=== PATIENT | female | born 1975 | race Caucasian/White ===

== ENCOUNTER 2019-09-07 05:25 | Inpatient (IN) | payer BC ==
[2019-09-04 13:17] LABS: BASOPHILS # (AUTO) 0.1 K/uL (0.0-0.2); BASOPHILS % (AUTO) 1.3 % (0.0-2.0); EOSINOPHILS # (AUTO) 0.4 K/uL (0.0-0.4); EOSINOPHILS % (AUTO) 4.9 % (0.0-4.0); HEMATOCRIT 41.2 % (36-48); HEMOGLOBIN 13.5 g/dL (12.0-16.0); LYMPHOCYTES # (AUTO) 1.6 K/uL (1.0-5.5); LYMPHOCYTES % (AUTO) 20.2 % (20.5-51.5); MEAN CORPUSCULAR HEMOGLOBIN 29 pg (27-31); MEAN CORPUSCULAR HGB CONC 33 % (32-36); MEAN CORPUSCULAR VOLUME 89 fL (79.0-98.0); MONOCYTES # (AUTO) 0.6 K/uL (0.0-1.0); MONOCYTES % (AUTO) 7.8 % (1.7-9.3); NEUTROPHILS # (AUTO) 5.3 K/uL (1.8-7.7); NEUTROPHILS % (AUTO) 65.8 % (40.0-70.0); PLATELET COUNT (AUTO) 280 K/uL (130-430); RED BLOOD CELL COUNT(AUTO) 4.63 MIL/uL (4.2-6.2); RED CELL DISTRIBUTION WIDTH 13.6 % (9.0-15.0); WHITE BLOOD COUNT (AUTO) 8.1 K/uL (4.8-10.8)
[2019-09-04 13:25] LABS: CALCIUM 8.9 mg/dL (8.4-11.0); CREATININE 0.7 mg/dL (0.55-1.30); POTASSIUM 3.9 mmol/L (3.5-5.1)
[2019-09-04 13:30] LABS: INR 0.9 (0.8-1.2); PROTHROMBIN TIME 9.3 SECS (9.5-12.5)
[2019-09-04 13:34] LABS: BILIRUBIN,URINE NEGATIVE (NEGATIVE); BLOOD, URINE NEGATIVE (NEGATIVE); CLARITY/URINE CLEAR (CLEAR); COLOR,URINE YELLOW (YELLOW); GLUCOSE,URINE NEGATIVE (NEGATIVE); KETONES,URINE NEGATIVE (NEGATIVE); LEUKOCYTE ESTERASE ,URINE NEGATIVE (NEGATIVE); NITRITE, URINE NEGATIVE (NEGATIVE); PH,URINE 7.5 (5.0-8.0); PROTEIN URINE NEGATIVE (NEGATIVE); UROBILINOGEN,URINE 0.2 (0.2-1.0)
[~2019-09-07] VITALS: Ht 162.6 cm; Wt 126.6 kg
[~2019-09-07 05:25] MED LIST: ALBMDI INH; ESCI10TA PO; LEVO75TA7 PO
[2019-09-07] MEDS ORDERED: CELECOXIB 200 MG CAPSULE ONE (06:19)
[2019-09-07] MEDS ORDERED: ACETAMINOPHEN 500 MG TABLET ONE (06:20)
[2019-09-07] MEDS ORDERED: GABAPENTIN 300 MG CAPSULE ONE (06:20)
[2019-09-07] MEDS ORDERED: oxyCODONE HCL 10 MG TAB.ER.12H PO ONE (06:21)
[2019-09-07] MEDS ORDERED: TRANEXAMIC ACID 650 MG TABLET ONE (06:21)
[2019-09-07] MEDS ORDERED: GABAPENTIN 300 MG CAPSULE PO ONE (06:45)
[2019-09-07] MEDS ORDERED: ACETAMINOPHEN 500 MG TABLET PO ONE (06:45)
[2019-09-07] MEDS ORDERED: oxyCODONE HCL 5 MG TABLET PO ONE (06:45)
[2019-09-07] MEDS ORDERED: CELECOXIB 200 MG CAPSULE PO ONE (06:45)
[2019-09-07] MEDS ORDERED: CEFAZOLIN 2 GM IVPB PREMIX 50 ML IV ONE (07:00)
[2019-09-07] MEDS ORDERED: TRANEXAMIC ACID 650 MG TABLET PO ONE (07:00)
[2019-09-07] MEDS ORDERED: LR 1,000 ML IV.SOLN IV ONE (07:25)
[2019-09-07] MEDS ORDERED: ROPIVACAINE HCL/PF 5 MG/ML 0.5% 30 ML VIAL EP ONE (07:25)
[2019-09-07] MEDS ORDERED: PROPOFOL 200MG/ 20ML VIAL (DIPRIVAN) IV ONE (07:25)
[2019-09-07] MEDS ORDERED: POLYMYXIN 500,000/BACIT.10,000 UNITS in NS IRR 1 L IR ONE (07:25)
[2019-09-07] MEDS ORDERED: TRANEXAMIC ACID 1,000 MG/10 ML VIAL IV ONE (07:25)
[2019-09-07] MEDS ORDERED: MIDAZOLAM HCL 5 MG/5 ML VIAL IVP ONE (07:25)
[2019-09-07] MEDS ORDERED: ROPIVACAINE HCL/PF 0.2% EPIDURAL 200 ML PLAST..BAG EP ONE (07:25)
[2019-09-07] MEDS ORDERED: VANCOMYCIN HCL 1000 MG/VIAL IV ONE (07:25)
[2019-09-07] MEDS ORDERED: KETOROLAC TROMETHAMINE 30 MG VIAL IVP ONE (07:25)
[2019-09-07] MEDS ORDERED: BUPIVACAINE /DEX PF 0.75% SPINAL 2 ML AMP INJ ONE (07:25)
[2019-09-07] MEDS ORDERED: BACITRACIN 50,000 UNITS VIAL ONE (07:26)
[2019-09-07] MEDS ORDERED: fentaNYL CITRATE/PF 100 MCG/2 ML AMP IVP PRN ×2 (08:00)
[2019-09-07] MEDS ORDERED: MORPHINE SULFATE 10MG/10ML PF AMP SP SCH (08:00)
[2019-09-07] MEDS ORDERED: NALBUPHINE HCL 10 MG/ML AMP IVP PRN ×3 (08:00→08:15)
[2019-09-07] MEDS ORDERED: NALOXONE HCL 0.4 MG/ML AMP (NARCAN) IVP PRN ×2 (08:00)
[2019-09-07] MEDS ORDERED: KETOROLAC TROMETHAMINE 60 MG/2 ML VIAL IM PRN (08:00)
[2019-09-07] MEDS ORDERED: ONDANSETRON HCL 4 MG/2 ML VIAL IVP PRN ×3 (08:00→08:15)
[2019-09-07] MEDS ORDERED: DIPHENHYDRAMINE INJ 50 MG/ML VIAL IVP PRN ×2 (08:00→08:15)
[2019-09-07] MEDS ORDERED: ROPIVACAINE HCL/PF 0.2% 100 ML INJ SCH (08:06)
[2019-09-07] MEDS ORDERED: OXYCODONE/ACETAMINOPHEN *10*mg/325 mg TABLET PO PRN (08:15)
[2019-09-07] MEDS ORDERED: D5/0.45 NS 1,000 ML IV ONE (09:35)
[2019-09-07] MEDS ORDERED: MORPHINE SULFATE 10 MG/ML VIAL IM PRN (09:45)
[2019-09-07] MEDS ORDERED: ACETAMINOPHEN 325 MG TABLET PO PRN (09:45)
[2019-09-07] MEDS ORDERED: BISACODYL 10 MG/SUPPOSITORY RC PRN (09:45)
[2019-09-07 11:00] VITALS: BP_SYST 125
[2019-09-07] MEDS: NACL 0.9% 1,000 ML IV SCH ×2 (11:00→13:02)
[2019-09-07] MEDS: DIPHENHYDRAMINE INJ 50 MG/ML VIAL IVP PRN ×4 (11:19→23:52)
[2019-09-07 11:36] VITALS: BP_SYST 125
[2019-09-07 11:44] VITALS: BP_SYST 125
[2019-09-07] MEDS: OXYCODONE/ACETAMINOPHEN *10*mg/325 mg TABLET PO PRN ×3 (15:04→23:53)
[2019-09-07] MEDS: CEFAZOLIN 1 GM IVPB PREMIX 50 ML IV SCH ×2 (15:19→23:51)
[2019-09-07 16:17] VITALS: BP_SYST 109
[2019-09-08 00:30] VITALS: BP_SYST 125
[2019-09-08] MEDS: OXYCODONE/ACETAMINOPHEN *10*mg/325 mg TABLET PO PRN ×5 (04:42→22:04)
[2019-09-08] MEDS: RIVAROXABAN 10 MG TABLET PO SCH ×2 (09:00→09:29)
[2019-09-08] MEDS ORDERED: FLU VACC QS2019-20 36MOS UP/PF 60 MCG/0.5 ML SYRINGE I.M. PRN (09:00)
[2019-09-08] MEDS: DIPHENHYDRAMINE INJ 50 MG/ML VIAL IVP PRN ×4 (09:25→22:04)
[2019-09-08 10:48] VITALS: BP_SYST 124
[2019-09-08 12:40] VITALS: BP_SYST 156
[2019-09-08] MEDS ORDERED: IPRATROPIUM/ALBUTEROL SULFATE 3 ML AMPUL.NEB (DUONEB) INH PRN (14:30)
[2019-09-08] MEDS: IPRATROPIUM/ALBUTEROL SULFATE 3 ML AMPUL.NEB (DUONEB) INH SCH ×3 (15:00→23:14)
[2019-09-08 16:20] VITALS: BP_SYST 139
[2019-09-08] MEDS: HYDROcodone/ACETAMIN 7.5-325 MG TAB PO PRN (17:17)
[2019-09-08 20:00] VITALS: BP_SYST 147
[2019-09-09] VITALS: BP_SYST 150
[2019-09-09] MEDS: HYDROcodone/ACETAMIN 7.5-325 MG TAB PO PRN ×4 (02:54→20:50)
[2019-09-09] MEDS: IPRATROPIUM/ALBUTEROL SULFATE 3 ML AMPUL.NEB (DUONEB) INH SCH ×6 (03:00→23:00)
[2019-09-09] MEDS: OXYCODONE/ACETAMINOPHEN *10*mg/325 mg TABLET PO PRN ×5 (05:54→23:50)
[2019-09-09 08:05] VITALS: BP_SYST 155
[2019-09-09] MEDS: DIPHENHYDRAMINE INJ 50 MG/ML VIAL IVP PRN (08:18)
[2019-09-09] MEDS: RIVAROXABAN 10 MG TABLET PO SCH (08:18)
[2019-09-09 12:47] VITALS: BP_SYST 123
[2019-09-09 16:00] VITALS: BP_SYST 129
[2019-09-09 20:00] VITALS: BP_SYST 145
[2019-09-10] MEDS: IPRATROPIUM/ALBUTEROL SULFATE 3 ML AMPUL.NEB (DUONEB) INH SCH ×4 (03:00→15:54)
[2019-09-10] MEDS: HYDROcodone/ACETAMIN 7.5-325 MG TAB PO PRN ×3 (05:51→14:31)
[2019-09-10 06:09] VITALS: BP_SYST 142
[2019-09-10 08:13] VITALS: BP_SYST 133
[2019-09-10] MEDS: RIVAROXABAN 10 MG TABLET PO SCH (08:20)
[2019-09-10 11:03] VITALS: BP_SYST 146
[2019-09-10 12:22] VITALS: BP_SYST 146
[2019-09-10 16:04] VITALS: BP_SYST 149
[2019-09-10 17:39] VITALS: BP_SYST 149
== END 2019-09-10 17:55 | disposition home health service (06) | DRG 470 ==
LOC: SMU 05:25
PROVIDERS: ADMIT Orthopaedic Surgery; ATTEND Orthopaedic Surgery
PROC: 0SRD0J9 Replacement of Left Knee Joint with Synthetic Substitute, Cemented, Open Approach (ICD-10-PCS; principal; 2019-09-07 07:30)
DX: M17.12 Unilateral primary osteoarthritis, left knee (principal); F17.210 Nicotine dependence, cigarettes, uncomplicated; G89.29 Other chronic pain; I10 Essential (primary) hypertension; J45.909 Unspecified asthma, uncomplicated; Z79.899 Other long term (current) drug therapy
CPT/HCPCS: 36415; 71046-TC; 80048; 81003; 84703; 85025; 85610-TC; 85730-TC; 87081; 88305; 88311; 93005; 94640; 94760; 97039; 97116-GP; 97530-GP; C1713; C1776; J0690; J1200; J1885; J2250; J2270; J2704; J2795; J3370; J3490; J7030; J7120; J7620